=== PATIENT | male | born 1950 | race Caucasian/White ===

== ENCOUNTER 2024-01-17 14:37 | Outpatient (CLI) | payer MEDICARE, SELFPAY ==
--- NOTE | ~2024-01-17 | XR_ITS ---
EXAMINATION: XR shoulder RT min 2V DATE: 01/17/2024 14:56 INDICATION: Chronic right shoulder pain TECHNIQUE: AP internally and externally rotated, AP oblique externally rotated and transscapular Y vi ews of the right shoulder were obtained. COMPARISON: None FINDINGS: Normal alignment. No fracture.Severe right glenohumeral osteoarthritis with joint space narrowing wh ich places appears near [id number] with moderate size marginal osteophyte along the inferior glenoi d and small marginal osteophyte along the humeral head. Moderate right acromioclavicular osteoarthrit is. Soft tissues are unremarkable. Visualized portion of the right lung are clear. IMPRESSION: Severe right glenohumeral and moderate acromioclavicular osteoarthritis. Reviewed, dictated and finalized at location A. [employer]
== END 2024-01-17 14:38 | disposition home or self-care (01) ==
LOC: ANHIMG 14:44
PROVIDERS: PCP Family Medicine; Visit Provider Orthopaedic Surgery
DX: M19.011 Primary osteoarthritis, right shoulder (principal)
CPT/HCPCS: 73030

== ENCOUNTER 2024-02-17 09:03 | Outpatient (CLI) | payer MEDICARE, SELFPAY ==
--- NOTE | 2024-02-17 09:24 | ECG_ITS ---
Measurements Intervals [place] Rate: 52 P: 30 AL: 171 QRS: 33 QRSD: 86 T: 34 QT: 408 QTc: 380 Interpretive Statements SINUS BRADYCARDIA BORDERLINE ECG NO PREVIOUS ECG AVAILABLE FOR COMPARISON Electronically Signed On 02-17-2024 9:51:47 CDT by Mendez Wynne D.O.
[2024-02-17 09:33] LABS: Hematocrit 42.8 % (42.0-52.0); Hemoglobin 14.2 g/dL (14.0-18.0)
[2024-02-17 09:46] LABS: Urine Cotinine NEGATIVE
[2024-02-17 09:52] LABS: Albumin Level 4.3 g/dL (3.5-5.1); Estimated Glomerular Filt Rate 54; Glucose 93 mg/dL (65-110)
== END 2024-02-17 09:04 | disposition home or self-care (01) ==
PROVIDERS: PCP Family Medicine; Visit Provider Orthopaedic Surgery
DX: E78.5 Hyperlipidemia, unspecified (principal); I10 Essential (primary) hypertension; M19.011 Primary osteoarthritis, right shoulder; Z79.899 Other long term (current) drug therapy; R94.31 Abnormal electrocardiogram [ECG] [EKG]
CPT/HCPCS: 80307; 82040; 82565; 82947; 85014; 85018; 93005

== ENCOUNTER 2024-02-21 13:23 | Outpatient (CLI) | payer MEDICARE, SELFPAY ==
--- NOTE | ~2024-02-21 | CT_ITS ---
EXAMINATION: CT shoulder RT wo con DATE: 02/21/2024 13:40 INDICATION: Right shoulder osteoarthritis. Preoperative planning. TECHNIQUE: Computed tomography (CT) of the right shoulder was performed without intravenous contrast. Automated exposure control and iterative reconstruction technique were employed. The dose-length pro duct was 426.96 mGy-cm. COMPARISON: Right shoulder radiographs 01/17/2024 FINDINGS: Bone alignment is normal. No fracture. There is advanced osteoarthritis of glenohumeral quintin nt including bone volume loss of the glenoid. There is severe acromioclavicular joint osteoarthritis. There is no asymmetric fatty atrophy of the rotator cuff muscle bellies. IMPRESSION: 1. Advanced glenohumeral joint osteoarthritis. Reviewed, dictated and finalized at location E.
== END 2024-02-21 13:24 | disposition home or self-care (01) ==
PROVIDERS: PCP Family Medicine; Visit Provider Orthopaedic Surgery
DX: M19.011 Primary osteoarthritis, right shoulder (principal)
CPT/HCPCS: 73200

== ENCOUNTER 2024-03-16 13:55 | Outpatient (CLI) | payer MEDICARE, SELFPAY ==
[2024-03-16 16:34] LABS: MRSA (PCR) NOT DETECTED (NOT DETECTE)
== END 2024-03-16 13:56 | disposition home or self-care (01) ==
PROVIDERS: PCP Family Medicine; Visit Provider Orthopaedic Surgery
DX: M19.011 Primary osteoarthritis, right shoulder (principal); Z01.818 Encounter for other preprocedural examination
CPT/HCPCS: 87641

== ENCOUNTER 2024-04-06 02:11 | Day surgery (SDC) | payer MEDICARE, SELFPAY ==
[2024-03-16 14:14] VITALS: BMI 34.2
--- NOTE | 2024-03-16 14:27 | PC.NURSE ---
Report to the Outpatient Waiting Room, entrance under the green pavilion located off [facility], at time __1000 on date __04/06/24 . Planned Procedure Time: __1200 . Time changes happen often and if your time is changed the preop area will call you the afternoon before. - You and your visitor will be asked to self-screen and do not enter if you have any COVID symptoms. - A mask is optional within the hospital at this time. Patients may have clear liquids (water, carbonated beverages, clear teas, apple juice) until 3 hours prior to surgery( 9:00 AM) with a maximum of 20 ounces. - No food from midnight until time of surgery - Infants may have breast milk until 4 hours before surgery, infant formula 6 hours prior to surgery. - Children will be allowed to drink immediately following surgery. If applicable, please bring a bottle or sippy cup to assist with drinking. Juice, water, soda, and popsicles are readily available. For infants on formula, please bring formula the day of surgery. Pacifiers are allowed. Take the following medications with a SIP of water the morning of surgery: _NONE DO NOT STOP ANY OF YOUR OTHER PRESCRIPTION MEDICATIONS PRIOR TO SURGERY ?EXCEPT THE FOLLOWING Medications to discontinue per physician HOLD DICLOFENAC 7 DAYS PRE OP PER DR FROST__LAST DOSE 03/29/24 MAY TAKE TYLENOL IF NEEDED FOR PAIN Please no make-up, nail german, hairspray, perfume, deodorant, or body powder the day of surgery. No jewelry (including any body piercings) or valuables the day of surgery, leave them at home. Please take a shower or bath the night before, or the morning of, surgery with an antibacterial soap. Wear comfortable, loose fitting clothing. Children are encouraged to wear pajamas. - Jewelry must be removed prior to entering the operating room. Rings and piercings that are not removed may be cut off. - The hospital will not accept responsibility for valuables. - Please leave all valuables, including medications, at home the day of surgery. If you are going home after surgery, a licensed dumpcart driver must drive you home. - NO public transportation without another adult if you receive anesthesia. - We recommend that an adult stay with you for 24 hours following discharge. - We also recommend that you do not drive, make important decision, drink alcoholic beverages, or take any drugs that were not prescribed by your health care provider for at least 24 hours after your discharge time. Follow any additional instructions given to you from your surgeon. If you or anyone in your household have experienced Covid symptoms in the past week, please notify your surgeon or the nurse liaison at the phone number below for possible testing. VERBAL AND WRITTEN instructions given to __PATIENT AND BEV and asked if any additional questions and then verbalized understanding. Patient advised to call surgeon office or pre surgery nurse liaison [phone] if any additional questions.
[2024-03-16 14:46] VITALS: BP 130/86; PULSE 70; RESP 18; TEMP 36.9; O2SAT 98
[2024-04-06] VITALS (11 sets, daily range): BP systolic 108–154; BP diastolic 67–90; PULSE 63–98; RESP 15–20; TEMP 36.2–36.8; O2SAT 91–97
--- NOTE | ~2024-04-06 | XR_ITS ---
EXAMINATION: XR shoulder RT min 2V DATE: 04/06/2024 15:19 INDICATION: Reversal total right shoulder arthroplasty. Postop. TECHNIQUE: A single view of right shoulder was obtained. COMPARISON: Right shoulder radiographs 01/17/2024 FINDINGS: There is a reverse jbmk-koc-qrnyrs total right shoulder arthroplasty in near-anatomic align ment. No fracture. There is soft tissue gas, consistent with recent surgery. IMPRESSION: 1. Reverse xchj-jns-ibqyrl total right shoulder arthroplasty in near-anatomic alignment. Reviewed, dictated and finalized at location A. IMPRESSION: 1. Reverse vwnk-xlq-xjrjai total right shoulder arthroplasty in near-anatomic a lignment.
--- NOTE | 2024-04-06 09:53 | WPDHPUPDATE1 ---
History and Physical Update Update Date/Time: 04/06/24 09:53 History and Physical has been reviewed, including an updated exam of the patient. There are NO changes in the patient's condition. Risks, benefits, and alternatives have been discussed and questions answered. Patient agrees to proceed with procedure.
[2024-04-06] MEDS: ACETAMINOPHEN 500 MG TABLET 1000 MG PO (10:11)
[2024-04-06] MEDS: LACTATED RINGERS 1,000 ML 30 ML IV CONT ×2 (10:36→15:11)
[2024-04-06] MEDS: TRANEXAMIC ACID 1,000MG/ISO100 1,000 MG/100 ML BAG 200 MG IVPB (11:12)
--- NOTE | 2024-04-06 11:29 | WPDANESEPPF ---
Anes - Initial Pre Proc Eval Procedure: Operation Date: 04/06/24 12:00 Proposed Procedures p Right Reverse Total Shoulder Arthroplasty - Spike Geller MD Date/Time: 04/06/24 11:29 Surgeon: Spike Geller MD Pre Op Diagnosis: primary OA right shoulder Patient Data Age: 74 Gender: M Height: 1.71 m Weight: 99.1 kg Last Vital Signs Temp 97.5 F L 04/06/24 10:38 Pulse 63 04/06/24 10:38 Resp 16 04/06/24 10:38 BP 154/90 H 04/06/24 10:38 Pulse Ox 95 04/06/24 10:38 O2 Del Method Room Air 04/06/24 10:38 Allergies Allergy/AdvReac Type Severity Reaction Status Date / Time vancomycin Allergy Severe Other Verified 04/06/24 10:43 Home Medications Medication Instructions Recorded Confirmed Type acetaminophen 325 mg tablet 325 mg PO PRN PRN Pain 03/16/24 04/06/24 History (Tylenol) bictegravir 50 mg-emtricitabine 1 tablet PO HS 03/16/24 04/06/24 History 200 mg-tenofovir alafenam 25 mg tablet (Biktarvy) budesonide-formoterol HFA 160 2 puff inhalation HS 03/16/24 04/06/24 History mcg-4.5 mcg/actuation aerosol inhaler (Symbicort) diclofenac sodium 75 mg 75 mg PO BID Pain 03/16/24 04/06/24 History tablet,delayed release fenofibric acid (choline) 45 mg 45 mg PO HS 03/16/24 04/06/24 History capsule,delayed release icosapent ethyl 1 gram capsule 2 g PO BID 03/16/24 04/06/24 History (Vascepa) losartan 50 mg tablet 50 mg PO HS 03/16/24 04/06/24 History omeprazole 40 mg capsule,delayed 40 mg PO HS 03/16/24 04/06/24 History release rosuvastatin 40 mg tablet 40 mg PO HS 03/16/24 04/06/24 History Patient hx anesthesia problems: none Family hx anesthesia problems: none Results Review: All pre-operative results and documents have been reviewed as part of the pre-operative evaluation. [facility] Past Medical History Medical History Hyperlipidemia Hypertension Sleep apnea Surgical History Surgical History History of meniscectomy of left knee (~2019) History of tooth extraction Social History Social History Smoking packs per day: 1 Smoking cigarettes per day: 20.0 Years smoked: 22 Smoking pack-years: 22.00 Smoking status: Former smoker Tobacco type: cigarettes Smoking end date: 11/25/13 Additional smoking assessment comments: OCC CIGARETTE NOW AND THEN.LAST SMOKED Alcohol intake: current Drinks per week: 2 Alcohol use details: 1/week Substance use: never Do You Feel Safe in your Home?: Yes Lack of Transportation: No Lack of Food: Never True Current Housing: I Have Housing Concerned About Future Housing: No Difficulty Paying Gas/Electric Bills: No Difficulty Paying for Meds: No Currently Unemployed: No Education: Trade/Vocational Certificate Difficulty w/ Childcare or Family Care: No Living arrangements: with family Spiritual care concerns: No Anes - Eval Final PreProcedure Day of Procedure 04/06/24 11:29 Patient weight: obese Heart: regular rate and rhythm Lungs: clear to auscultation Airway: Mallampati scale and special considerations (Upper and lowe dentures. ) Neurological: alert and oriented Last oral intake: >/= 8 hours ASA classification: III Emergent: no Anesthetic plan: proceed Anesthesia type and monitoring: general, regional (ISB. ) other and standard monitoring Results Review: All pre-operative results and documents have been reviewed as part of the pre-operative evaluation. HTN, Hyperlipidemia, MEGHAN on CPAP. EKG w NSR, SB. Informed Consent: The patient's anesthetic plan and its attendant risks and benefits were discussed with the patient/family/POA. Questions were solicited and answers provided to the satisfaction of the patient/family/POA.
--- NOTE | 2024-04-06 12:17 | WPDANESPNB ---
Anes - Peripheral Nerve Block Date/Time: 04/06/24 12:17 I have discussed with the patient/family/POA the placement of a peripheral nerve block for post-operative pain management, including associated risks, benefits, complications, and side effects. Alternative methods of post-operative analgesia were detailed. Questions were solicited and answers provided to the satisfaction of the patient/family/POA. Time-Out: A pre-procedural Time-Out was completed immediately before starting the procedure and confirmed: Patient Identification, Site, Procedure, Patient Position and the Availability of Requisite Equipment. Clinical Indications: Acute post-operative pain management requested by the operative surgeon. Nerve Block Insertion Note Anes-nerve block: interscalene right Patient position: supine Skin prep: chlorhexidine Needle: 22 gauge, stimulating, insulated echogenic needle. Needle length: 80 mm Technique: ultrasound Injectate: other (Bupiv 0.5%, 20 mls. ) Observations: tolerated well Complications: none Procedure start time:: 1205 Procedure end time:: 1213
[2024-04-06] MEDS: ceFAZolin 2 GM/D5W 50 ML 2 GM/50 ML BAG IVPB ×2 (12:38→21:29)
[2024-04-06] MEDS: SODIUM CHLORIDE 0.9% IV 37.7 ML, MORPHINE SULFATE INJ (*CRX) 2 MG, ROPivacaine HCL 1% 2... INFILTRATE (13:39)
--- NOTE | 2024-04-06 14:40 | W.PM.PROC2 ---
Procedure Note - Detailed Date of Procedure 04/06/24 Pre-op Diagnosis OA right shoulder (status post shoulder instability) Post-op Diagnosis Same Procedure Performed Reverse total shoulder arthroplasty, right Surgeon Spike Geller MD Instructional Support Services Director Cyn Parry PA-C Anesthesia General and Regional (Interscalene block.) Findings Severe degenerative changes. Moderate posterior superior erosion confirmed on CT scan. Implants placed according the 3D preoperative templating using a 15 degree augment at the posterosuperior quadrant of the glenoid. Bone was partially eroded and soft on the glenoid. Good fixation was obtained with a small amount of bone graft and 3 locking screws in addition to the central compression screw which had good fixation. 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 The soft tissue sleeve was however intact with the CA ligament. Description of Procedure The patient was given an interscalene block in the preoperative area. Preoperative antibiotics were given. The patient was transferred to the operating room and a general anesthetic was administered. The beach chair position was used at 45 degrees. All bony prominences were padded. The head was carefully stabilized on the [facility] head inspector and center marker. A sterile prep and drape was performed in the usual manner with ChloraPrep. A longitudinal incision was created at the anterior shoulder just lateral to the deltopectoral interval. Hydrogen peroxide was placed on the incision and then rinsed after one minute. Careful dissection was performed to expose the interval and protect the cephalic vein. The vein was retracted medially. The upper border of the pectoralis was left in situ. Anterior circumflex vessel branches were suture ligated. The biceps was tenodesed. A subscapularis tenotomy was performed. The inferior capsule was released, exposing the humeral head. Osteophytes were removed. Care was taken to stay on bone to protect the axillary nerve. The anatomic head cut was taken with the oscillating saw. The guide pin was placed, central drilling performed, and the broach trial inserted. The neck anteversion and inclination were carefully assessed. The cut protector was placed, and attention was turned to the glenoid. Retractors were placed. Releases were carried out for exposure. The subscapularis was mobilized, the inferior capsule and long head of triceps released, and the superior and middle glenohumeral ligaments released as well. Labral tissue was resected as needed. The sizing template was used to assess the baseplate position low on the glenoid. A guide pin was placed. Minimal reaming was used to accomplish a flat surface without violating the subchondral bone. Version was corrected according to preoperative templating. The boss was drilled, and the real component was impacted into position. Supplemental locking screws were placed centrally, superiorly, and inferiorly. The glenosphere was impacted into the taper. The proximal humerus was reamed for the inset component. The humeral components were trialed. The real humeral stem, tray, and insert were impacted into position. The shoulder was copiously irrigated periodically with pulsatile lavage. The shoulder was reduced and stability confirmed. 1 gram of Vancomycin powder was placed in the joint. The biceps tenodesis was incorporated with the pectoralis tendon repair. The deltopectoral space was reapproximated with number 1 Vicryl. The remaining tissue was closed with 0 Quill and 2-0 Quill running suture and steri-strips. A sterile silver occlusive dressing and shoulder immobilizer were placed. The patient was transferred to the recovery room. Physician care team assistant, Cyn Parry PA-C, required for surgery; including patient positioning, draping, tissue retraction, maintaining instrument position, wound closure, and dressing placement. Imp
--- NOTE | 2024-04-06 17:26 | PC.NURSE ---
This patient, Francisco Minor, was admitted to Medical Room 343-01. Patient/family oriented to hospital policies and general routines including ID bracelet, bed and alarms, visiting hours, pain management, procedures, bathroom and other care routines, personal items, smoking policy, room service/diet, and visiting hours. Information on how to activate the Rapid Response Team has been discussed. Patient/Family are encouraged to report perceived risks to care and to ask questions if they do not understand what they are told or what they should do.
[2024-04-06] MEDS: ASPIRIN 81 MG ENTERIC TABLET PO (17:33)
[2024-04-06] MEDS: SENNA/DOCUSATE SODIUM TABLET 2 TAB PO (17:33)
[2024-04-06] MEDS: DICLOFENAC SOD 75 MG TABLET.EC PO (17:33)
[2024-04-06] MEDS: LOSARTAN POTASSIUM 50 MG TABLET PO (21:30)
[2024-04-06] MEDS: ROSUVASTATIN 20 MG TABLET 40 MG PO (21:30)
[2024-04-06] MEDS: CYCLOBENZAPRINE HCL 5 MG TABLET PO (21:32)
[2024-04-07 02:00] VITALS: BP 139/85; PULSE 83; RESP 16; TEMP 36.2; O2SAT 95
[2024-04-07 02:45] VITALS: PULSE 99; RESP 19; O2SAT 94
[2024-04-07] MEDS: ceFAZolin 2 GM/D5W 50 ML 2 GM/50 ML BAG IVPB ×2 (04:51→11:27)
[2024-04-07 05:54] LABS: Basophils Percent Auto 0.2 % (0.2-1.2); Hemoglobin 13.3 g/dL (14.0-18.0); Immature Granulocyte Absolute 0.06 K/mm3 (0.00-0.031); Immature Granulocyte Percent A 0.5 % (0-0.5); Lymphocytes Absolute Auto 1.58 K/mm3 (0.9-3.2); Lymphocytes Percent Auto 12.8 % (18.3-44.2); Mean Corpuscular HGB Conc 33.3 g/dl (32-36); Mean Corpuscular Hemoglobin 31.7 pg (26-34); Mean Corpuscular Volume 95.5 fl (80-100); Mean Platelet Volume 9.5 fl (7.4-10.4); Monocytes Percent Auto 8.1 % (2.6-8.5); Neutrophils Absolute Auto 9.7 K/mm3 (1.3-6.7); Neutrophils Percent Auto 78.4 % (45.5-73.1); Platelet Count Result 208 k/mm3 (150-375); Red Blood Count 4.19 M/mm3 (4.6-6.20); Red Cell Distribution Width 12.9 % (11.5-14.5); White Blood Count 12.3 K/mm3 (4.5-10.0)
[2024-04-07 06:00] VITALS: BP 145/80; PULSE 90; RESP 16; TEMP 36.2; O2SAT 94
[2024-04-07 06:14] LABS: Anion Gap 11 mmol/L (4-12); Blood Urea Nitrogen 26 mg/dL (9-20); Calcium 9.2 mg/dL (8.4-10.2); Carbon Dioxide 22 mmol/L (22-30); Chloride 104 mmol/L (98-107); Estimated CRCL calculation 52 ml/min; Estimated Glomerular Filt Rate 54; Glucose 121 mg/dL (65-110); Potassium 4.3 mmol/L (3.4-5.0); Sodium 137 mmol/L (137-145)
--- NOTE | 2024-04-07 07:39 | PM.DS ---
DS: Admitting Diagnosis Discharge Date 04/07/24 Admitting Diagnosis Glenohumeral joint arthritis. DS: Discharge Diagnosis Discharge Diagnosis (1) Status post reverse total arthroplasty of right shoulder: Code(s): Z96.611 - Presence of right artificial shoulder joint Status: Acute Assessment and Plan: Postop day 1: Right reverse total shoulder. Patient tolerated procedure well. No complications. Pain manageable with pain medication. No numbness or tingling. We had a lengthy discussion regarding postoperative wound care, limitations, expectations, and exercises. Patient shows good understanding. He has had initial physical therapy and is tolerating it well. DVT prophylaxis: 81 mg baby aspirin b.i.d. for 14 days. Pain medication: Percocet. Patient has followup appointment with Dr. Geller in 3 weeks. DS: Summary Hospital Course Hospital Course: Tolerated proceedure well. Has had initial PT/OT and tolerating it well. Status at Discharge Functional status at discharge: independent ambulation Overall status at discharge: patient is progressing back to baseline Time Spent with Patient Time attestation: Total time spent providing and/or coordinating discharge services: Exam Narrative: Overweight 74 y/o male. Resting comfortably in chair. Wearing sling. Dressing dry and intact with no drainage. Moderate swelling. Moderate ecchymosis. No erythema. No hematoma. Range of motion limited due to pain. Calf nontender. Neurologic status intact. No varicosities. Distal pulses palpable. DS: Data Data Completed and Pending Labs on day of discharge: Labs from last 24 hours 04/07/24 04/06/24 05:27 10:21 WBC 12.3 H RBC 4.19 L Hgb 13.3 L Hct 40.0 L MCV 95.5 MCH 31.7 MCHC 33.3 RDW 12.9 Plt Count 208 MPV 9.5 Immature Gran % (Auto) 0.5 Neut % (Auto) 78.4 H Lymph % (Auto) 12.8 L [place] % (Auto) 8.1 Eos % (Auto) 0.0 Baso % (Auto) 0.2 Lymph # (Auto) 1.58 [place] # (Auto) 1.0 H Eos # (Auto) 0.0 Baso # (Auto) 0.0 Abs Immat Gran (auto) 0.06 H Absolute Neuts (auto) 9.7 H Absolute Nucleated RBC 0.000 Nucleated RBC % 0.0 Sodium 137 Potassium 4.3 Chloride 104 Carbon Dioxide 22 Anion Gap 11 BUN 26 H Creatinine 1.30 Estim Creat Clear Calc 52 Estimated GFR 54 L Glucose 121 H Calcium 9.2 Blood Type A Positive Antibody Screen Negative Discharge Plan Discharge Patient Disposition: Home, Self-Care Discharge Instructions: See green instruction sheets Stand Alone Forms: General Discharge Instructions Follow-up/Referrals: Cyn Parry PA [Physician Environmental Health Specialist] - Discharge Medications: New aspirin 81 mg tablet,delayed release (DR/EC) 81 mg PO BID 14 Days Qty: 28 0RF oxycodone-acetaminophen 5-325 mg tablet 1 - 2 tablet PO Q4-6H MDD 6 PRN (Reason: pain) Qty: 30 0RF Continued diclofenac sodium 75 mg tablet,delayed release (DR/EC) 75 mg PO BID losartan 50 mg tablet 50 mg PO HS omeprazole 40 mg capsule,delayed release(DR/EC) 40 mg PO HS rosuvastatin 40 mg tablet 40 mg PO HS fenofibric acid (choline) 45 mg capsule,delayed release(DR/EC) 45 mg PO HS Biktarvy 50-200-25 mg tablet 1 tablet PO HS icosapent ethyl [Vascepa] 1 gram capsule 2 g PO BID budesonide-formoterol [Symbicort] 160-4.5 mcg/actuation HFA aerosol inhaler 2 puff INHALATION HS acetaminophen [Tylenol] 325 mg Tablet 325 mg PO PRN PRN (Reason: Pain)
[2024-04-07] MEDS: oxyCODONE/ACETAMINOPHEN (*CRX) 5-325 MG TABLET 1 TABLET PO (09:06)
[2024-04-07] MEDS: SENNA/DOCUSATE SODIUM TABLET 2 TAB PO (09:06)
[2024-04-07] MEDS: PANTOPRAZOLE 40 MG TABLET PO (09:06)
[2024-04-07] MEDS: ASPIRIN 81 MG ENTERIC TABLET PO (09:07)
[2024-04-07] MEDS: polyethylene glycoL 3350 17 GM POWD.PACK PO (09:08)
[2024-04-07] MEDS: WATER FOR IRRIGATION, STERILE 500 ML BOTTLE (09:09)
[2024-04-07] MEDS: DICLOFENAC SOD 75 MG TABLET.EC PO (09:09)
--- NOTE | 2024-04-07 09:53 | P.PNAN_ITS ---
Anes - Prog Note Post-Op Date/Time: 04/07/24 09:53 Cardiovascular status: normal Respiratory status: normal Airway patency: baseline Mental status: baseline Post-Op hydration status: normal Vital Signs: Last Vital Signs Temp 36.2 C L 04/07/24 06:00 Pulse 90 04/07/24 06:00 Resp 16 04/07/24 06:00 BP 145/80 H 04/07/24 06:00 Pulse Ox 94 04/07/24 06:00 O2 Del Method Autopap 04/07/24 02:45 O2 Flow Rate 8 04/06/24 15:25 Pain Score (VAS): 12/04 I/O: Intake & Output 04/06/24 04/07/24 04/07/24 23:59 07:59 15:59 Intake Total 490 750 Output Total 0 Balance 490 750 Laboratory Tests 04/07/24 05:27 04/07/24 05:27 04/06/24 04/07/24 10:21 05:27 WBC 12.3 H RBC 4.19 L Hgb 13.3 L Hct 40.0 L MCV 95.5 MCH 31.7 MCHC 33.3 RDW 12.9 Plt Count 208 MPV 9.5 Immature Gran % (Auto) 0.5 Neut % (Auto) 78.4 H Lymph % (Auto) 12.8 L [place] % (Auto) 8.1 Eos % (Auto) 0.0 Baso % (Auto) 0.2 Lymph # (Auto) 1.58 [place] # (Auto) 1.0 H Eos # (Auto) 0.0 Baso # (Auto) 0.0 Abs Immat Gran (auto) 0.06 H Absolute Neuts (auto) 9.7 H Absolute Nucleated RBC 0.000 Nucleated RBC % 0.0 Sodium 137 Potassium 4.3 Chloride 104 Carbon Dioxide 22 Anion Gap 11 BUN 26 H Creatinine 1.30 Estim Creat Clear Calc 52 Estimated GFR 54 L Glucose 121 H Calcium 9.2 Blood Type A Positive Antibody Screen Negative Post-procedural complaints: none Patient Feedback: Patient satisfied with anesthetic care.
[2024-04-07 10:54] VITALS: BP 137/72; PULSE 88; RESP 18; TEMP 36.3; O2SAT 96
[2024-04-07] MEDS: traMADol HCL (*CRX) 50 MG TABLET PO (12:07)
== END 2024-04-07 12:15 | disposition home or self-care (01) ==
LOC: ANHSURGERY 12:40 → ANH3MED 16:16
PROVIDERS: Physician Assistant Surgical; PCP Family Medicine; Visit Provider Orthopaedic Surgery
PROC: (CPT 23472; principal; 2024-04-06 12:00)
DX: M19.011 Primary osteoarthritis, right shoulder (principal); G89.18 Other acute postprocedural pain; Z79.51 Long term (current) use of inhaled steroids; I10 Essential (primary) hypertension; E78.5 Hyperlipidemia, unspecified; G47.30 Sleep apnea, unspecified; Z72.0 Tobacco use; E66.9 Obesity, unspecified; Z68.33 Body mass index [BMI] 33.0-33.9, adult; Z21 Asymptomatic human immunodeficiency virus [HIV] infection status; Z79.899 Other long term (current) drug therapy
CPT/HCPCS: 23472; 64415; 36415; 73030; 80048; 85025; 86850; 86900; 86901; 87641; 97110; 97161; 97165; 97530; 97535; A4565; A9270; C1776; J0171; J0690; J1100; J1170; J1885; J2250; J2270; J2405; J2704; J2795; J3010; J3370; J7120

== ENCOUNTER 2024-05-27 13:00 | Outpatient (CLI) | payer MEDICARE, SELFPAY ==
--- NOTE | ~2024-05-27 | XR_ITS ---
EXAMINATION: XR shoulder RT min 2V DATE: 05/27/2024 13:18 INDICATION: Right shoulder arthroplasty. Follow-up. TECHNIQUE: 4 views of right shoulder were obtained. COMPARISON: Right shoulder radiographs 04/06/2024 FINDINGS: There is a reverse slon-dyv-pzhpck total right shoulder arthroplasty in near-anatomic align ment. No fracture. No periprosthetic lucency to suggest loosening or infection. There is severe acrom ioclavicular joint osteoarthritis. IMPRESSION: 1. Total right shoulder arthroplasty in near-anatomic alignment. 2. Severe right acromioclavicular joint osteoarthritis. Reviewed, dictated and finalized at location A.
== END 2024-05-27 13:01 | disposition home or self-care (01) ==
PROVIDERS: PCP Family Medicine; Visit Provider Orthopaedic Surgery
DX: Z47.1 Aftercare following joint replacement surgery (principal); M19.011 Primary osteoarthritis, right shoulder
CPT/HCPCS: 73030